=== PATIENT | female | born 1965 | race Asian ===

== ENCOUNTER 2020-03-29 17:42 | Outpatient (CLI) | payer OTHER ==
[2020-03-29 18:10] LABS: PLATELET COUNT 311 K/uL (152-353)
[2020-03-29 18:30] LABS: POTASSIUM 4.3 mmol/L (3.6-5.2)
== END 2020-03-29 20:13 | disposition home or self-care (01) ==
LOC: LAB 17:42
PROVIDERS: ATTEND Nurse Practitioner Family
DX: Z00.00 Encounter for general adult medical examination without abnormal findings (principal); Z79.899 Other long term (current) drug therapy; I10 Essential (primary) hypertension; D64.9 Anemia, unspecified; E11.9 Type 2 diabetes mellitus without complications; R53.81 Other malaise; R53.83 Other fatigue
CPT/HCPCS: 80053; 80061; 82306; 82607; 83036; 84439; 84443; 85027; 86140